=== PATIENT | female | born 1970 | race Caucasian/White ===

== ENCOUNTER 2025-01-01 17:54 | Emergency (ER) | payer BC ==
[~2025-01-01] VITALS: Ht 152.4 cm; Wt 55.3 kg
[2025-01-01 18:20] VITALS: BP 134/79; TEMP 98.1
[2025-01-01] MEDS ORDERED: IBUP-1957 PO (18:56)
[2025-01-01 19:19] VITALS: O2SAT 98
== END 2025-01-01 19:20 | disposition home or self-care (01) ==
LOC: ER 18:06
DX: H66.91 Otitis media, unspecified, right ear (principal); R05.9 Cough, unspecified; R09.89 Other specified symptoms and signs involving the circulatory and respiratory systems; Z79.1 Long term (current) use of non-steroidal anti-inflammatories (NSAID)